=== PATIENT | male | born 1990 | race Two or more races ===

== ENCOUNTER 2016-06-25 00:55 | Emergency (ER) | payer OTHER ==
[2016-06-25 01:09] VITALS: RESP 16
[2016-06-25] MEDS ORDERED: IBUPROFEN 200 MG TAB PO ONE (01:21)
--- NOTE | 2016-06-25 01:23 | EDPHY ---
H & P Stated Complaint: L testicle pain since yesterday-denies trauma Time Seen by Provider: 06/25/16 01:12 HPI/ROS: CHIEF COMPLAINT: Testicle pain HISTORY OF PRESENT ILLNESS: The patient is a 25-year-old man who comes to the emergency department complaining of left testicle pain for the last 48 hours. He states that it has been rather constant. Improves with standing. He denies any trauma. He denies any fevers. He denies any dysuria or discharge. No swelling or erythema. He did have unprotected sex about 2 weeks ago. No abdominal pain. No nausea vomiting. REVIEW OF SYSTEMS: Constitutional: denies: chills, fever, recent illness, recent injury EENTM: denies: blurred vision, double vision, nose congestion Respiratory: denies: cough, shortness of breath Cardiac: denies: chest pain, irregular heart rate, lightheadedness, palpitations Gastrointestinal/Abdominal: denies: abdominal pain, diarrhea, nausea, vomiting, blood streaked stools Genitourinary: See HPI Musculoskeletal: denies: joint pain, muscle pain Skin: denies: lesions, rash, jaundice, bruising Neurological: denies: headache, numbness, paresthesia, tingling, dizziness, weakness Hematologic/Lymphatic: denies: blood clots, easy bleeding, easy bruising Immunologic/allergic: denies: HIV/AIDS, transplant EXAM: GENERAL: Well-appearing, well-nourished and in no acute distress. HEAD: Atraumatic, normocephalic. EYES: Pupils equal round and reactive to light, extraocular movements intact, sclera anicteric, conjunctiva are normal. ENT: TMs normal, nares patent, oropharynx clear without exudates. Moist mucous membranes. NECK: Normal range of motion, supple without lymphadenopathy or JVD. LUNGS: Breath sounds clear to auscultation bilaterally and equal. No wheezes rales or rhonchi. HEART: Regular rate and rhythm without murmurs, rubs or gallops. ABDOMEN: Soft, nontender, normoactive bowel sounds. No guarding, no rebound. No masses appreciated. : Normal appearing testicles, no tenderness or swelling, normal cremasteric reflex. No urethral discharge. No inguinal tenderness or masses or hernias appreciable BACK: No CVA tenderness, no spinal tenderness, step-offs or deformities EXTREMITIES: Normal range of motion, no pitting or edema. No clubbing or cyanosis. NEUROLOGICAL: Cranial nerves II through XII grossly intact. Normal speech, normal gait. 5/5 strength, normal movement in all extremities, normal sensation PSYCH: Normal mood, normal affect. SKIN: Warm, dry, normal turgor, no visible rashes or lesions. Source: Patient Exam Limitations: No limitations - Personal History Current Tetanus Diphtheria and Acellular Pertussis (TDAP): Yes - Medical/Surgical History Hx Asthma: No Hx Chronic Respiratory Disease: No Hx Diabetes: No Hx Cardiac Disease: No Hx Renal Disease: No Hx Cirrhosis: No Hx Alcoholism: No Hx HIV/AIDS: No Hx Splenectomy or Spleen Trauma: No Other PMH: HTN, anxiety, Pneumothorax - Family History Significant Family History: No pertinent family hx - Social History Smoking Status: Light smoker Alcohol Use: Sober Drug Use: None Constitutional: Initial Vital Signs Temperature (C) 37.2 C 06/25/16 01:06 Heart Rate 100 06/25/16 01:06 Respiratory Rate 16 06/25/16 01:06 Blood Pressure 164/89 H 06/25/16 01:06 O2 Sat (%) 96 06/25/16 01:06 O2 Delivery Mode Room Air Allergies/Adverse Reactions: azithromycin Allergy (Verified 06/25/16 01:06) Cephalosporins Allergy (Verified 06/25/16 01:06) Home Medications: Medication Instructions Recorded Doxycycline Hyclate [Vibramycin] 100 mg PO BID #30 cap 06/25/16 Marijuana 06/25/16 Medical Decision Making ED Course/Re-evaluation: 2:30 a.m. I discussed with the patient treatment for presumptive STDs. He initially stated that he was allergic to cephalosporins but tells me now that he has not had a major reaction. I will give him the IM dose. He is also allergic to azithromycin. We will give him the IM dose here and observe. 3:30 a.m. Patient has done with antibiotics. He is eager to go home. Differential Diagnosis: Partial list of the Differential diagnosis considered include but were not limited to; STD, orchitis, testicular torsion, varicocele and although unlikely based on the history and physical exam, I also considered hernia, diverticulitis, kidney stone. I discussed these differential diagnoses and the plan with the patient as well as the usual and expected course. The patient understands that the diagnosis is provisional and that in medicine we are not always correct and that further workup is often warranted. Usual and customary warnings were given. All of the patient's questions were answered. The patient was instructed to return to the emergency department should the symptoms at all worsen or return, otherwise to followup with the physician as we discussed. - Data Points Laboratory Results: 06/25/16 01:35 C.trachomatis RNA (TMA) Pending N.gonorrhoeae RNA (TMA) Pending Medications Given: Discontinued Medications Ceftriaxone Sodium (Rocephin Im Syringe) 250 mg IM ONCE ONE PRN Reason: Protocol Stop: 06/25/16 02:19 Last Admin: 06/25/16 02:58 Dose: 250 mg Doxycycline Hyclate (Doxycycline Hyclate) 100 mg PO EDNOW ONE PRN Reason: Protocol Stop: 06/25/16 02:19 Last Admin: 06/25/16 02:37 Dose: 100 mg Ibuprofen (Motrin) 800 mg PO EDNOW ONE Stop: 06/25/16 01:22 Last Admin: 06/25/16 01:25 Dose: 800 mg Departure - Departure Disposition: Home, Routine, Self-Care Clinical Impression: Testicular pain, left Condition: Fair Instructions: Testicle Pain (ED) Referrals: Russ Leonard MD [[facility] [place]] - As per Instructions Prescriptions: Doxycycline Hyclate [Vibramycin] 100 mg PO BID #30 cap
[2016-06-25] MEDS ORDERED: DOXYCYCLINE HYCLATE 100 MG CAP/TAB PO ONE (02:18)
[2016-06-25] MEDS ORDERED: CEFTRIAXONE IM 350 MG/ML SYRINGE IM ONE (02:18)
[2016-06-25 04:04] VITALS: BP 145/77; PULSE 71; TEMP 98.2; O2SAT 98
[2016-06-25 11:21] LABS: CHLAMYDIA AMPLIFICATION GENPRB NEGATIVE (NEGATIVE)
== END 2016-06-25 04:03 | disposition home or self-care (01) ==
DX: N50.812 Left testicular pain (principal); I10 Essential (primary) hypertension; F17.200 Nicotine dependence, unspecified, uncomplicated
CPT/HCPCS: J0696